=== PATIENT | female | born 1970 | race Caucasian/White ===

== ENCOUNTER 2022-04-02 07:40 | Emergency (ER) | payer OTHER ==
[2022-04-02] MEDS ORDERED: Ketorolac 30 MG/ML SDV IM ONE (08:01)
[2022-04-02] MEDS ORDERED: Sodium Chloride 0.9% 10 ML Syringe FLUSH PRN ×2 (08:01→10:51)
[2022-04-02] MEDS ORDERED: Sodium Chloride 0.9% 1,000 ML IV ONE (08:01)
[2022-04-02] MEDS ORDERED: Morphine 2 MG/ML SYRINGE IVPUSH ONE (08:02)
[2022-04-02] MEDS ORDERED: Ketorolac 30 MG/ML SDV ONE (08:15)
[2022-04-02] MEDS ORDERED: Morphine 2 MG/ML SYRINGE ONE ×2 (08:19→08:28)
[2022-04-02] MEDS ORDERED: Tamsulosin 0.4 MG Cap.ER PO ONE (08:32)
[2022-04-02] MEDS ORDERED: HYDROmorphone 2 MG/ML Syringe ONE ×4 (08:44→11:44)
[2022-04-02] MEDS ORDERED: HYDROmorphone 2 MG/ML Syringe IVPUSH ONE ×4 (08:57→11:32)
[2022-04-02] MEDS ORDERED: hydrOXYzine HCl 25 MG Tab PO ONE (08:58)
[2022-04-02 09:18] LABS: TROPONIN I HIGH SENSITIVITY 7.2 pg/ml (<=60.4)
[2022-04-02] MEDS ORDERED: Heparin Sodium 5,000 Units/ML Vial IVPUSH ONE (09:57)
[2022-04-02] MEDS ORDERED: Heparin Sodium/D5W 25,000 UNITS/500 ML BAG IV SCH (10:00)
[2022-04-02] MEDS ORDERED: Sodium Chloride 0.9% 1,000 ML IV SCH (11:00)
[2022-04-02] MEDS ORDERED: Ondansetron 4 MG/2 ML SDV IVPUSH ONE (11:49)
[2022-04-02] MEDS ORDERED: Ketamine 200 MG/20 ML MDV IVPUSH ONE (13:25)
[2022-04-02] MEDS ORDERED: Ondansetron 4 MG/2 ML SDV ONE (13:25)
== END 2022-04-02 13:40 ==
LOC: LB.ED 07:40
DX: I82.3 Embolism and thrombosis of renal vein (principal)
CPT/HCPCS: 36415; 71250; 74176; 80053; 81003; 82150; 83605; 84484; 85025; 85610; 85651; 96361; 96365; 96366; 96372; 96375; 96376; 99284; 99284-25; A9270-GY; J1170; J1644; J1885; J2270; J2405; J7030; U0002